=== PATIENT | male | born 1970 | race Native Hawaiian/Other Pacific Islander ===

== ENCOUNTER 2018-06-22 23:05 | Emergency (ER) | payer OTHER ==
[2018-06-22 23:36] VITALS: BMI 27.3
[2018-06-22] MEDS ORDERED: Lidocaine 2% MPF (5 ml) Inj ONE (23:43)
[2018-06-22] MEDS ORDERED: Hydrocodone/Acetaminophen 5 mg /300 mg Tab PO ONE (23:43)
--- NOTE | 2018-06-22 23:54 | C.PDOC ---
History Of Present Illness 48 year old male states 4 days ago he stubbed his right great toe and lifted the nail. He notes he already had fungus on that toe, now he complains of pain and some bleeding to the toe. Denies fever or change in sensation. Time Seen by Provider: 06/22/18 23:51 Chief Complaint (Nursing): Lower Extremity Problem/Injury History Per: Patient History/Exam Limitations: no limitations Onset/Duration Of Symptoms: Days (4) Current Symptoms Are (Timing): Still Present Recent travel outside of the [place]: No - Ankle/Foot Description Of Injury: Other (Stubbed toe) Past Medical History Reviewed: Historical Data, Nursing Documentation, Vital Signs Vital Signs: Last Vital Signs Temp 97.9 F 06/22/18 23:42 Pulse 68 06/22/18 23:42 Resp 18 06/22/18 23:42 BP 166/110 H 06/22/18 23:42 Pulse Ox 97 06/22/18 23:42 - Medical History PMH: HTN Denies: Chronic Kidney Disease Surgical History: Denies: Appendectomy, CABG, Carotid Endarterectomy, Cholecystectomy, Coronary Stent, Endoscopy, Pacemaker, Tonsillectomy Family History: States: No Known Family Hx - Social History Hx Alcohol Use: No Hx Substance Use: No - Immunization History Hx Tetanus Toxoid Vaccination: No Hx Influenza Vaccination: Yes Hx Pneumococcal Vaccination: No Review Of Systems Constitutional: Negative for: Fever, Chills Musculoskeletal: Positive for: Other (Right great toe pain) Skin: Negative for: Lesions Neurological: Negative for: Weakness, Numbness Physical Exam - Physical Exam Appears: Non-toxic, No Acute Distress Skin: Normal Color, Warm, No Rash Head: Atraumatic, Normacephalic Eye(s): bilateral: Normal Inspection Extremity: Capillary Refill (<2 seconds), Other (Right great toe nail lifted and hanging onto medial aspect of cuticle, fungus to nail bed, tenderness to right great toe, no active bleeding or pus discharge, macerated skin between webbed space of right 1st and 2nd toes, no erythema.) Pulses: Left Dorsalis Pedis: Normal, Right Dorsalis Pedis: Normal Neurological/Psych: Oriented x3, Normal Speech, Normal Cranial Nerves (Grossly intact) Gait: Steady ED Course And Treatment O2 Sat by Pulse Oximetry: 97 (Room air) Pulse Ox Interpretation: Normal Medical Decision Making Medical Decision Making: Hanging nail was removed, toe was cleansed and bandaged, patient started on keflex, and discharged with podiatry follow up. Disposition Counseled Patient/Family Regarding: Diagnosis, Need For Followup, Rx Given - Disposition Referrals: Podiatry Clinic [Outside] Disposition: HOME/ ROUTINE Disposition Time: 00:33 Condition: STABLE Prescriptions: Cephalexin [cephalexin] 500 mg PO TID 7 Days cap Instructions: Fungal Nail Infections, Toe Injury (DC) Forms: [employer] (Macedonian), General Discharge Instructions - Clinical Impression Clinical Impression: Toenail avulsion, Onychomycosis of great toe - PA / SUPERVISOR PH[employer] / Resident Statement MD/DO has reviewed & agrees with the documentation as recorded. - Scribe Statement The provider has reviewed the documentation as recorded by the Scribyuko Irizarry All medical record entries made by the Tinyibyuko were at my direction and personally dictated by me. I have reviewed the chart and agree that the record accurately reflects my personal performance of the history, physical exam, medical decision making, and the department course for this patient. I have also personally directed, reviewed, and agree with the discharge instructions and disposition.
[2018-06-23] VITALS: TEMP 97.9
[2018-06-23] MEDS ORDERED: Lidocaine 2% Inj (20ml) INFIL ONE (00:19)
[2018-06-23] MEDS ORDERED: Hydrocodone/Acetaminophen 5 mg /300 mg Tab PO STA (00:19)
[2018-06-23 00:29] VITALS: BP 151/94; PULSE 61; RESP 19
[2018-06-23 00:33] VITALS: O2SAT 97
== END 2018-06-23 01:05 | disposition home or self-care (01) ==
LOC: C.ER 23:05
DX: S91.201A Unspecified open wound of right great toe with damage to nail, initial encounter (principal); X58.XXXA Exposure to other specified factors, initial encounter; B35.1 Tinea unguium

== ENCOUNTER 2018-06-26 13:39 | Inpatient (IN) | payer OTHER ==
[2018-06-26 13:40] VITALS: BMI 27.3
[2018-06-26 14:39] LABS: BASO # 0.1 K/uL (0.0-0.2); EOS # 0.1 K/uL (0.0-0.7); EOS % 2.1 % (0.0-4.0); HEMOGLOBIN 15.4 g/dL (12.0-18.0); LYMPH % 44.3 % (20.0-40.0); MEAN CELL VOLUME 89.3 fL (80.0-94.0); MEAN CORPUSCULAR HEMOGLOBIN 30.3 pg (27.0-31.0); MEAN CORPUSCULAR HGB CONC 33.9 g/dL (33.0-37.0); MEAN PLATELET VOLUME 7.1 fL (7.2-11.7); MONO # 0.7 K/uL (0.0-0.8); MONO % 9.9 % (0.0-10.0); NEUT # 2.9 K/uL (1.8-7.0); NEUT % 42.7 % (50.0-75.0); NRBC % 0.2 % (0.0-2.0); RBC 5.09 Mil/uL (4.40-5.90); RED CELL DISTRIBUTION WIDTH 13.4 % (11.5-14.5); WHITE BLOOD COUNT 6.8 K/uL (4.8-10.8)
--- NOTE | 2018-06-26 14:43 | C.PDOC ---
History Of Present Illness 48 years old male presents to ED for complaints of headache and acute loss of vision of the right lower eye field approximately 3 hours ago. Patient reports similar episode 3 years ago. Patient's vision currently spontaneously returned to baseline with normal vision of right eye. Patient has PMHx of poorly controlled HTN and diabetes. Patient states he does not follow up with an electronic security technician. Patient speaks Mohawk. A translating device was used and maori physiotherapist stated patient is "difficult to understand." Denies retinal issues or any other complaints. Time Seen by Provider: 06/26/18 14:05 Chief Complaint (Nursing): Eye Problem History Per: Patient, Miner Helper History/Exam Limitations: language barrier Onset/Duration Of Symptoms: Hrs Current Symptoms Are (Timing): Still Present Injury To Eye?: No Wears Contact Lens?: No Recent travel outside of the [place]: No Past Medical History Reviewed: Historical Data, Nursing Documentation, Vital Signs Vital Signs: Last Vital Signs Temp 97.9 F 06/26/18 13:51 Pulse 79 06/26/18 14:25 Resp 17 06/26/18 14:25 BP 141/89 06/26/18 14:25 Pulse Ox 95 06/26/18 14:25 - Medical History PMH: Diabetes, HTN Denies: Chronic Kidney Disease Surgical History: Denies: Appendectomy, CABG, Carotid Endarterectomy, Cholecystectomy, Coronary Stent, Endoscopy, Pacemaker, Tonsillectomy Family History: States: No Known Family Hx - Social History Hx Alcohol Use: No Hx Substance Use: No - Immunization History Hx Tetanus Toxoid Vaccination: No Hx Influenza Vaccination: Yes Hx Pneumococcal Vaccination: No Review Of Systems Except As Marked, All Systems Reviewed And Found Negative. Constitutional: Negative for: Fever, Chills Eyes: Positive for: Vision Change (Acute loss of vision of the lower right eye) Gastrointestinal: Negative for: Nausea, Vomiting, Abdominal Pain, Diarrhea Skin: Negative for: Rash Neurological: Positive for: Headache. Negative for: Weakness, Numbness Physical Exam - Physical Exam Eye(s): right: Other (Symmetrical. Darkened in bilateral lower areas. Vision Symmetrical. ), left: Normal Inspection, PERRL, EOMI Oral Mucosa: Moist Neck: Normal ROM, Supple Chest: Symmetrical, No Tenderness Cardiovascular: Rhythm Regular Respiratory: Normal Breath Sounds, No Rales, No Rhonchi, No Wheezing Gastrointestinal/Abdominal: Soft, No Tenderness, Other (Obese ) Extremity: Normal ROM Extremity: Bilateral: Atraumatic, Normal Color And Temperature, Normal ROM Pulses: Left Radial: Normal, Right Radial: Normal Neurological/Psych: Oriented x3, Normal Speech Gait: Steady ED Course And Treatment - Laboratory Results Result Diagrams: 06/26/18 14:36 03 14:36 Lab Interpretation: Abnormal (+ elevated glu) ECG: Interpreted By Me ECG Rhythm: Sinus Rhythm ECG Interpretation: Normal Rate From EC O2 Sat by Pulse Oximetry: 95 (RA) Pulse Ox Interpretation: Normal - Radiology CXR: Interpreted by Me CXR Interpretation: Yes: No Acute Disease - Other Rad CXR X-Ray: Viewed By Me, Read By Radiologist Interpretation: IMPRESSION: No active disease. - CT Scan/US Head CT Other Rad Studies (CT/US): Read By Radiologist, Radiology Report Reviewed CT/US Interpretation: IMPRESSION: No evidence of acute intracranial hemorrhage mass effect or midline shift. Possible encephalomalacia or dilated perivascular space at the left basal ganglia anterior to the left thalamus. Partially imaged high attenuation lesion at or adjacent to the left the TMJ. Reevaluation Time: 16:07 Reassessment Condition: Unchanged (remains baseline) - Physician Consult Information Outcome Of Conversation: 1600: d/w Dr. Belem Almonte, medicine Physician'S Aide, ok to admit. Asks for Optho Consult. 1615: d/w Dr. Agarwal- Fabiola, Workup and opt f/u recommended. Medical Decision Making Medical Decision Making: Plan: * IV Fluids * Toradol * Tylenol * Blood work * CXR * EKG * CT Head ? retinal changes high risk in HTN/DM and abn b/l retinal exams d/w Dr. Dr Agarwal- Optho Physician'S Aide- recommends neuro/CV w/u and opt f/u for complete optho exam in office after d/c. suspect Amaurosis Fugax Start ASA multiple non-specific head CT changes Slurred speech is baseline (per Mohawk maori physiotherapist) ? related to prior CVA? ASA MRI in AM Disposition Doctor Will See Patient In The: Hospital Counseled Patient/Family Regarding: Studies Performed, Diagnosis - Disposition Disposition: HOSPITALIZED Disposition Time: 16:17 Condition: GOOD Forms: [employer] [facility] (Hungarian) - Clinical Impression Clinical Impression: Transient visual loss of right eye, Abnormal brain CT
[2018-06-26 14:47] LABS: PROTHROMBIN TIME 11.1 SECONDS (9.7-12.2)
--- NOTE | 2018-06-26 14:48 | RAD ---
Date of service: 06/26/2018 HISTORY: Code Stroke COMPARISON: No prior. FINDINGS: LUNGS: No active pulmonary disease. PLEURA: No significant pleural effusion identified, no pneumothorax apparent. CARDIOVASCULAR: No aortic atherosclerotic calcification present. Normal cardiac size. No pulmonary vascular congestion. OSSEOUS STRUCTURES: No significant abnormalities. VISUALIZED UPPER ABDOMEN: Normal. OTHER FINDINGS: None. IMPRESSION: No active disease.
[2018-06-26] MEDS: Sodium Chloride 0.9% 1,000 ML IV SCH (15:02)
[2018-06-26] MEDS ORDERED: Sodium Chloride 0.9% 1,000 ML ONE (15:02)
[2018-06-26 15:04] LABS: ALB/GLOB RATIO 1.3 (1.0-2.1); ALBUMIN 4.4 g/dL (3.5-5.0); ALT/SGPT 43 U/L (21-72); AST/SGOT 45 U/L (17-59); BLOOD UREA NITROGEN 14 mg/dL (9-20); CALCIUM 9.2 mg/dl (8.6-10.4); GFR NON-AFRICAN AMERICAN > 60; HDL CHOLESTEROL 31 mg/dL (30-70)
[2018-06-26 15:16] LABS: LDL CHOLESTEROL 152 mg/dL (0-129)
--- NOTE | 2018-06-26 15:18 | CT ---
Date of service: 06/26/2018 PROCEDURE: CT HEAD WITHOUT CONTRAST. HISTORY: acute R vision changes, HTN/DM COMPARISON: None available. TECHNIQUE: Axial computed tomography images were obtained through the head/brain without intravenous contrast. Radiation dose: Total exam DLP = 1068.97 mGy-cm. This CT exam was performed using one or more of the following dose reduction techniques: Automated exposure control, adjustment of the mA and/or kV according to patient size, and/or use of iterative reconstruction technique. FINDINGS: HEMORRHAGE: No intracranial hemorrhage. BRAIN: Focal low-attenuation noted at the left basal ganglia anterior to the left thalamus of uncertain etiology and may represent encephalomalacia or less likely dilated perivascular space. No atrophy or chronic microvascular ischemic changes. VENTRICLES: Unremarkable. No hydrocephalus. CALVARIUM: Unremarkable. PARANASAL SINUSES: Unremarkable as visualized. No significant inflammatory changes. MASTOID AIR CELLS: Unremarkable as visualized. No inflammatory changes. OTHER FINDINGS: Partially imaged possible lesion at or adjacent to the left TMJ measures 1.9 centimeter in the transverse diameter best seen on image 1 series 3 IMPRESSION: No evidence of acute intracranial hemorrhage mass effect or midline shift. Possible encephalomalacia or dilated perivascular space at the left basal ganglia anterior to the left thalamus. Partially imaged high attenuation lesion at or adjacent to the left the TMJ.
[2018-06-26] MEDS ORDERED: Aspirin 325 mg EC Tablets PO STA (16:11)
--- NOTE | 2018-06-26 19:02 | CP.PCM.HP ---
Past Patient History - Past Medical History & Family History Past Medical History?: Yes - Past Social History Smoking Status: Never Smoked - CARDIAC Hx Hypertension: Yes Hx Pacemaker: No - PULMONARY Hx Respiratory Disorders: No - NEUROLOGICAL Hx Neurological Disorder: No - HEENT Hx HEENT Problems: No - RENAL Hx Chronic Kidney Disease: No - ENDOCRINE/METABOLIC Hx Diabetes Mellitus Type 2: Yes - HEMATOLOGICAL/ONCOLOGICAL Hx Blood Disorders: No - INTEGUMENTARY Hx Dermatological Problems: No - MUSCULOSKELETAL/RHEUMATOLOGICAL Hx Musculoskeletal Disorders: No - GASTROINTESTINAL Hx Gastrointestinal Disorders: Yes Hx Bowel Surgery: No Hx Colostomy: No Hx Fatty Liver Disease: Yes Hx Ileostomy: No Other/Comment: SCREENING COLONOSOPY FATHER WITH HISTORY OF BOWEL SURGERY. HYPERLIPIDEMIA - GENITOURINARY/GYNECOLOGICAL Hx Genitourinary Disorders: No - PSYCHIATRIC Hx Substance Use: No - SURGICAL HISTORY Hx Appendectomy: No Hx Carotid Endarterectomy: No Hx Cholecystectomy: No Hx Coronary Artery Bypass Graft: No Hx Coronary Stent: No Hx Tonsillectomy: No - ANESTHESIA Hx Anesthesia: Yes Hx Malignant Hyperthermia: No Meds Allergies/Adverse Reactions: Allergies Allergy/AdvReac Type Severity Reaction Status Date / Time No Known Allergies Allergy Verified 06/22/18 23:35 Physical Exam - Constitutional Appears: Well - Head Exam Head Exam: ATRAUMATIC, NORMAL INSPECTION, NORMOCEPHALIC - Eye Exam Eye Exam: EOMI, Normal appearance, PERRL Pupil Exam: NORMAL ACCOMODATION, PERRL - ENT Exam ENT Exam: Mucous Membranes Moist, Normal Exam - Neck Exam Neck exam: Positive for: Normal Inspection - Respiratory Exam Respiratory Exam: Decreased Breath Sounds - Cardiovascular Exam Cardiovascular Exam: REGULAR RHYTHM, +S1, +S2 - GI/Abdominal Exam GI & Abdominal Exam: Diminished Bowel Sounds, Soft - Rectal Exam Rectal Exam: Deferred Results - Vital Signs Recent Vital Signs: Last Vital Signs Temp 98 F 06/26/18 16:35 Pulse 76 06/26/18 16:29 Resp 13 06/26/18 16:29 BP 132/72 06/26/18 16:29 Pulse Ox 97 06/26/18 16:29 - Labs Result Diagrams: 06/26/18 14:36 06/26/18 14:36 Labs: Laboratory Results - last 24 hr 06/26/18 06/26/18 06/26/18 14:35 14:36 14:36 WBC 6.8 RBC 5.09 Hgb 15.4 Hct 45.5 MCV 89.3 MCH 30.3 MCHC 33.9 RDW 13.4 Plt Count 211 MPV 7.1 L Neut % (Auto) 42.7 L Lymph % (Auto) 44.3 H [place] % (Auto) 9.9 Eos % (Auto) 2.1 Baso % (Auto) 1.0 Neut # (Auto) 2.9 Lymph # (Auto) 3.0 [place] # (Auto) 0.7 Eos # (Auto) 0.1 Baso # (Auto) 0.1 PT 11.1 INR 1.0 APTT 37 H Sodium Potassium Chloride Carbon Dioxide Anion Gap BUN Creatinine Est GFR ( Amer) Est GFR (Non-Af Amer) POC Glucose (mg/dL) 185 H Random Glucose Hemoglobin A1c Calcium Total Bilirubin AST ALT Alkaline Phosphatase Troponin I Total Protein Albumin Globulin Albumin/Globulin Ratio Triglycerides Cholesterol LDL Cholesterol Direct HDL Cholesterol 06/26/18 06/26/18 06/26/18 14:36 14:36 17:35 WBC RBC Hgb Hct MCV MCH MCHC RDW Plt Count MPV Neut % (Auto) Lymph % (Auto) [place] % (Auto) Eos % (Auto) Baso % (Auto) Neut # (Auto) Lymph # (Auto) [place] # (Auto) Eos # (Auto) Baso # (Auto) PT INR APTT Sodium 136 Potassium 3.6 Chloride 97 L Carbon Dioxide 33 H Anion Gap 10 BUN 14 Creatinine 0.7 L Est GFR ( Amer) > 60 Est GFR (Non-Af Amer) > 60 POC Glucose (mg/dL) 160 H Random Glucose 165 H Hemoglobin A1c 7.5 H Calcium 9.2 Total Bilirubin 0.7 AST 45 ALT 43 Alkaline Phosphatase 76 Troponin I < 0.0120 Total Protein 7.6 Albumin 4.4 Globulin 3.3 Albumin/Globulin Ratio 1.3 Triglycerides 299 H Cholesterol 203 H LDL Cholesterol Direct 152 H HDL Cholesterol 31
[2018-06-26] MEDS: (Novolog) Insulin Aspart, Recombinant 100 u/ml 10 ml vial SC SCH (21:26)
[2018-06-27 00:20] VITALS: RESP 20
[2018-06-27] MEDS: Sodium Chloride 0.9% 1,000 ML IV SCH ×4 (00:35→21:17)
[2018-06-27] MEDS: (Novolog) Insulin Aspart, Recombinant 100 u/ml 10 ml vial SC SCH ×4 (08:21→21:38)
--- NOTE | 2018-06-27 09:51 | CP.PCM.CON ---
History of Present Illness - History of Present Illness History of Present Illness: Kahlil Higuera, PGY-1, Cardiology Consult Note for Dr. Oscar 48 year old male with past medical history of hypertension, hyperlipidemia, diabetes mellitus, and obstructive sleep apnea presents with headache and acute loss of vision of the right lower eye field which started yesterday morning around 10:30 AM. Patient reports having a similar episode 3 years ago, however, it lasted for 3 days so he did not seek any medical attention at the time. He said it differed from this episode in that he saw an "electrical wire" on the last episode. Patient reports that his loss of vision is intermittent with no exacerbating or remitting factors. He reports occasional dizziness with the loss of vision. Patient denies any current chest pain, shortness of breath, left arm pain, jaw pain, or nausea. History was obtained with yoruba military technology specialist, however, military technology specialist had some trouble understanding patient. As a result, history is limited. 12-point ROS was unremarkable except for what was mentioned above. Patient had a stress test last fall with unremarkable results as reported by him Patient has never had a cardiac catheterization as reported by him. Patient denies history of cigarettes, alcohol, or recreational drug use. Patient has no family history of any cardiac conditions or stroke. Review of Systems - Review of Systems Review of Systems: except as mentioned in HPI Past Patient History - Past Medical History & Family History Past Medical History?: Yes - Past Social History Smoking Status: Never Smoked - CARDIAC Hx Hypertension: Yes Hx Pacemaker: No - PULMONARY Hx Respiratory Disorders: No - NEUROLOGICAL Hx Neurological Disorder: No - HEENT Hx HEENT Problems: No - RENAL Hx Chronic Kidney Disease: No - ENDOCRINE/METABOLIC Hx Diabetes Mellitus Type 2: Yes - HEMATOLOGICAL/ONCOLOGICAL Hx Blood Disorders: No - INTEGUMENTARY Hx Dermatological Problems: No - MUSCULOSKELETAL/RHEUMATOLOGICAL Hx Falls: No - GASTROINTESTINAL Hx Gastrointestinal Disorders: Yes Hx Bowel Surgery: No Hx Colostomy: No Hx Fatty Liver Disease: Yes Hx Ileostomy: No Other/Comment: SCREENING COLONOSOPY FATHER WITH HISTORY OF BOWEL SURGERY. HYPERLIPIDEMIA - GENITOURINARY/GYNECOLOGICAL Hx Genitourinary Disorders: No - PSYCHIATRIC Hx Substance Use: No - SURGICAL HISTORY Hx Appendectomy: No Hx Carotid Endarterectomy: No Hx Cholecystectomy: No Hx Coronary Artery Bypass Graft: No Hx Coronary Stent: No Hx Tonsillectomy: No - ANESTHESIA Hx Anesthesia: Yes Hx Malignant Hyperthermia: No Meds Allergies/Adverse Reactions: Allergies Allergy/AdvReac Type Severity Reaction Status Date / Time No Known Allergies Allergy Verified 06/22/18 23:35 - Medications Medications: Current Medications Amlodipine Besylate (Norvasc) 2.5 mg PO DAILY [facility] Aspirin (Aspirin) 325 mg PO DAILY [facility] Heparin Sodium (Porcine) (Heparin) 5,000 units SC Q12 [facility] Sodium Chloride (Sodium Chloride 0.9%) 1,000 mls @ 100 mls/hr IV .Q10H [facility] Last Admin: 06/27/18 00:35 Dose: 100 mls/hr Insulin Aspart (Novolog) 0 unit SC ACHS [facility]; Protocol Last Admin: 06/27/18 08:21 Dose: 1 units Pneumococcal Polyvalent Vaccine (Pneumovax 23 Vaccine) 0.5 ml IM .ONCE ONE Stop: 06/27/18 10:01 Rosuvastatin Calcium (Crestor) 5 mg PO HS [facility] Last Admin: 06/26/18 21:51 Dose: 5 mg Physical Exam - Constitutional Appears: Well, Non-toxic, No Acute Distress - Head Exam Head Exam: ATRAUMATIC, NORMAL INSPECTION, NORMOCEPHALIC - Eye Exam Eye Exam: EOMI, PERRL - ENT Exam ENT Exam: Mucous Membranes Moist - Respiratory Exam Respiratory Exam: Clear to Auscultation Bilateral, NORMAL BREATHING PATTERN - Cardiovascular Exam Cardiovascular Exam: REGULAR RHYTHM, RRR - GI/Abdominal Exam GI & Abdominal Exam: Normal Bowel Sounds, Soft. absent: Tenderness - Extremities Exam Extremities exam: Positive for: full ROM - Neurological Exam Neurological exam: Alert, CN II-XII Intact, Oriented x3 - Psychiatric Exam Psychiatric exam: Normal Affect, Normal Mood - Skin Skin Exam: Dry, Intact, Normal Color Results - Vital Signs Recent Vital Signs: Last Vital Signs Temp 97.4 F L 06/27/18 00:19 Pulse 72 06/27/18 00:19 Resp 20 06/27/18 00:19 BP 138/87 06/27/18 00:19 Pulse Ox 96 06/27/18 00:19 - Labs Result Diagrams: 06/26/18 14:36 06/26/18 14:36 Labs: Laboratory Results - last 24 hr 06/26/18 06/26/18 06/26/18 14:35 14:36 14:36 WBC 6.8 RBC 5.09 Hgb 15.4 Hct 45.5 MCV 89.3 MCH 30.3 MCHC 33.9 RDW 13.4 Plt Count 211 MPV 7.1 L Neut % (Auto) 42.7 L Lymph % (Auto) 44.3 H [place] % (Auto) 9.9 Eos % (Auto) 2.1 Baso % (Auto) 1.0 Neut # (Auto) 2.9 Lymph # (Auto) 3.0 [place] # (Auto) 0.7 Eos # (Auto) 0.1 Baso # (Auto) 0.1 PT 11.1 INR 1.0 APTT 37 H Sodium Potassium Chloride Carbon Dioxide Anion Gap BUN Creatinine Est GFR ( Amer) Est GFR (Non-Af Amer) POC Glucose (mg/dL) 185 H Random Glucose Hemoglobin A1c Calcium Total Bilirubin AST ALT Alkaline Phosphatase Troponin I Total Protein Albumin Globulin Albumin/Globulin Ratio Triglycerides Cholesterol LDL Cholesterol Direct HDL Cholesterol 06/26/18 06/26/18 06/26/18 14:36 14:36 17:35 WBC RBC Hgb Hct MCV MCH MCHC RDW Plt Count MPV Neut % (Auto) Lymph % (Auto) [place] % (Auto) Eos % (Auto) Baso % (Auto) Neut # (Auto) Lymph # (Auto) [place] # (Auto) Eos # (Auto) Baso # (Auto) PT INR APTT Sodium 136 Potassium 3.6 Chloride 97 L Carbon Dioxide 33 H Anion Gap 10 BUN 14 Creatinine 0.7 L Est GFR ( Amer) > 60 Est GFR (Non-Af Amer) > 60 POC Glucose (mg/dL) 160 H Random Glucose 165 H Hemoglobin A1c 7.5 H Calcium 9.2 Total Bilirubin 0.7 AST 45 ALT 43 Alkaline Phosphatase 76 Troponin I < 0.0120 Total Protein 7.6 Albumin 4.4 Globulin 3.3 Albumin/Globulin Ratio 1.3 Triglycerides 299 H Cholesterol 203 H LDL Cholesterol Direct 152 H HDL Cholesterol 31 06/26/18 06/26/18 06/27/18 21:17 22:03 06:29 WBC RBC Hgb Hct MCV MCH MCHC RDW Plt Count MPV Neut % (Auto) Lymph % (Auto) [place] % (Auto) Eos % (Auto) Baso % (Auto) Neut # (Auto) Lymph # (Auto) [place] # (Auto) Eos # (Auto) Baso # (Auto) PT INR APTT Sodium Potassium Chloride Carbon Dioxide Anion Gap BUN Creatinine Est GFR ( Amer) Est GFR (Non-Af Amer) POC Glucose (mg/dL) 164 H Random Glucose Hemoglobin A1c Calcium Total Bilirubin AST ALT Alkaline Phosphatase Troponin I < 0.0120 < 0.0120 Total Protein Albumin Globulin Albumin/Globulin Ratio Triglycerides Cholesterol LDL Cholesterol Direct HDL Cholesterol 06/27/18 07:24 WBC RBC Hgb Hct MCV MCH MCHC RDW Plt Count MPV Neut % (Auto) Lymph % (Auto) [place] % (Auto) Eos % (Auto) Baso % (Auto) Neut # (Auto) Lymph # (Auto) [place] # (Auto) Eos # (Auto) Baso # (Auto) PT INR APTT Sodium Potassium Chloride Carbon Dioxide Anion Gap BUN Creatinine Est GFR ( Amer) Est GFR (Non-Af Amer) POC Glucose (mg/dL) 160 H Random Glucose Hemoglobin A1c Calcium Total Bilirubin AST ALT Alkaline Phosphatase Troponin I Total Protein Albumin Globulin Albumin/Globulin Ratio Triglycerides Cholesterol LDL Cholesterol Direct HDL Cholesterol Assessment & Plan - Assessment and Plan (Free Text) Assessment: Hypertension Diabetes Mellitus Type II Obstructive Sleep Apnea Hyperlipidemia Transient loss of vision with rule out of embolic stroke vs. amaurosis fugax Plan: Hypertension Diabetes Mellitus Type II Obstructive Sleep Apnea Hyperlipidemia Transient loss of vision with rule out of embolic stroke vs. amaurosis fugax Head CT: possible encephalomalacia of left basal ganglia Chest X ray: unremarkable EKG: Normal Sinus Rhythm Hemoglobin A1c: 7.5 Lipid panel: elevated triglycerides, cholesterol, and LDL Troponinx3 is <0.012 Will order echocardiogram with bubble study to evaluate for PFO or ASD as etiology for possible embolic stroke. Medications: Amlodipine 2.5 mg PO daily Rosuvastatin 5 mg PO daily - Date & Time Date: 06/27/18 Time: 09:53
[2018-06-27] MEDS ORDERED: Pneumococcal 23-Valent Vaccine IM ONE (10:00)
--- NOTE | 2018-06-27 12:46 | CARD ---
APPROVED REPORT Date of service: 06/26/2018 EKG Measurement Heart [id number] <Conclusion> Normal sinus rhythm Possible Inferior infarct, age undetermined Abnormal ECG
--- NOTE | 2018-06-27 14:04 | MRI ---
Date of service: 06/27/2018 PROCEDURE: MRI BRAIN WITHOUT CONTRAST HISTORY: acute transient right eye loss of vision. COMPARISON: CT head without contrast from 06/26/2018. TECHNIQUE: Multiplanar, multisequence MR images of the brain were obtained without intravenous contrast enhancement. FINDINGS: HEMORRHAGE: None DWI: No evidence of an acute or early subacute infarction. BRAIN PARENCHYMA: There are prominent perivascular spaces in the right medial thalamus and left anterior paramedian thalamus.. There is no mass, mass effect or abnormal extra-axial fluid collection. There is no territorial infarction. The midline sagittal structures are normal. VENTRICLES: The ventricles are normal in size, shape and configuration. CRANIUM: There is normal bone marrow signal pattern. ORBITS: Grossly unremarkable. PARANASAL SINUSES/MASTOIDS: Predominantly clear. VASCULAR SYSTEM: There are normal signal voids in the larger intracranial arteries. There is a linear high attenuation signal in the left cerebellar hemisphere on T1 and T2 weighted images with corresponding increased magnetic susceptibility on gradient images OTHER FINDINGS: None. IMPRESSION: No acute intracranial abnormality. Prominent perivascular spaces in the right medial thalamus and left paramedian anterior thalamus. Linear signal abnormality in the left cerebellar hemisphere could represent petechial hemorrhage or developmental venous anomaly. Correlation with MRI of the brain with intravenous contrast is recommended. Incompletely imaged lesion posterior to the left temporomandibular joint and CT scan is not imaged on the MRI examination. CT scan of the neck with intravenous contrast is recommended for further evaluation.
--- NOTE | 2018-06-27 16:01 | CON ---
DATE: 06/27/2018 CHIEF COMPLAINT: Transient acute vision loss of right lower eye field. HISTORY OF PRESENT ILLNESS: This is a 48-year-old man with past medical history of hypertension, hyperlipidemia, type 2 diabetes, , sleep apnea, came with a headache with acute visual loss of the right lower field. Headache was diffuse pressure type. His MRI of the brain showed no acute intracranial abnormalities, just chronic microvascular ischemic changes, but no evidence of any infarct. His blood pressure was systolically high as well as diastolic. Currently it is controlled. He is on aspirin 325 p.o. daily and Crestor 5 mg for stroke prevention. Carotid Doppler is currently pending. REVIEW OF SYSTEMS: A 14-point review of system is negative except for the HPI. MEDICATION: Reviewed by nurse, per reconciliation sheet. ALLERGIES: NO KNOWN DRUG ALLERGIES. PHYSICAL EXAMINATION: VITAL SIGNS: Temperature 98, pulse rate of 74, blood pressure 130/80, respiratory rate 20, oxygen saturation 97% on room air. GENERAL: The patient is seen up in bed, no acute distress. HEENT: Head is atraumatic, normocephalic. PERRLA. Extraocular movements intact. NECK: Supple. No JVD. No adenopathy noted. LUNGS: Clear to auscultation. No adventitious sounds. HEART: S1, S2. Normal rate and rhythm. No murmurs, rubs or gallops. ABDOMEN: Soft, nontender, nondistended. Bowel sounds are present. EXTREMITIES: No clubbing, no cyanosis. Peripheral pulses are 2+ bilaterally. NEUROLOGIC: The patient is alert, oriented to person, place, month and year. Speech is fluent without any errors. Cranial nerves II through XII intact. Motor exam: Normal tone, normal bulk of muscle. Moves all extremities equally. No pronator drift seen. Sensory exam: Light touch, pinprick, proprioception and vibration intact. DTRs are 2+ throughout. Coordination: [id number] intact. No dysmetria noted. Gait is deferred for now. LABORATORY DATA: Today's blood sugar is 144. IMPRESSION: Transient acute vision loss with headache could be secondary to migraine or versus amaurosis fugax, which is transient. MRI of the brain showed no acute intracranial abnormalities. PLAN: At this time recommend: 1. Aspirin 325 and Crestor 5 mg for stroke prevention. 2. Keep his systolic blood pressure between 120s to 130s and diastolic 70s to 80s. 3. Salt restriction diet and carotid Doppler and follow with Cardiology. Thank you for this consult. Lexa Schofield MD
--- NOTE | 2018-06-27 20:11 | CP.PCM.PN ---
Subjective - Date & Time of Evaluation Date of Evaluation: 06/27/18 Time of Evaluation: 08:15 - Subjective Subjective: clinically same Objective - Vital Signs/Intake and Output Vital Signs (last 24 hours): Temp Pulse Resp BP Pulse Ox 98 F 74 20 134/80 96 06/27/18 16:00 06/27/18 16:00 06/27/18 16:00 06/27/18 16:00 06/27/18 16:00 Intake and Output: 06/27/18 06/28/18 18:59 06:59 Intake Total 2220 Balance 2220 - Medications Medications: Current Medications Amlodipine Besylate (Norvasc) 2.5 mg PO DAILY [facility] Last Admin: 06/27/18 10:04 Dose: 2.5 mg Aspirin (Aspirin) 325 mg PO DAILY [facility] Last Admin: 06/27/18 10:03 Dose: 325 mg Heparin Sodium (Porcine) (Heparin) 5,000 units SC Q12 [facility] Last Admin: 06/27/18 10:04 Dose: 5,000 units Sodium Chloride (Sodium Chloride 0.9%) 1,000 mls @ 100 mls/hr IV .Q10H [facility] Last Admin: 06/27/18 14:04 Dose: 100 mls/hr Insulin Aspart (Novolog) 0 unit SC ACHS [facility]; Protocol Last Admin: 06/27/18 17:28 Dose: Not Given Rosuvastatin Calcium (Crestor) 5 mg PO HS [facility] Last Admin: 06/26/18 21:51 Dose: 5 mg - Labs Labs: 06/26/18 14:36 06/26/18 14:36 PT 11.1 SECONDS (9.7-12.2) 06/26/18 14:36 INR 1.0 06/26/18 14:36 APTT 37 SECONDS (21-34) H 06/26/18 14:36 - Constitutional Appears: Well - Head Exam Head Exam: ATRAUMATIC, NORMAL INSPECTION, NORMOCEPHALIC - Eye Exam Eye Exam: EOMI, Normal appearance, PERRL Pupil Exam: NORMAL ACCOMODATION, PERRL - ENT Exam ENT Exam: Mucous Membranes Moist, Normal Exam - Neck Exam Neck Exam: Full ROM, Normal Inspection. absent: Lymphadenopathy - Respiratory Exam Respiratory Exam: Decreased Breath Sounds - Cardiovascular Exam Cardiovascular Exam: REGULAR RHYTHM, +S1, +S2 - GI/Abdominal Exam GI & Abdominal Exam: Soft, Diminished Bowel Sounds - Rectal Exam Rectal Exam: Deferred
[2018-06-28] MEDS: Sodium Chloride 0.9% 1,000 ML IV SCH ×2 (05:59→16:30)
[2018-06-28] MEDS: (Novolog) Insulin Aspart, Recombinant 100 u/ml 10 ml vial SC SCH ×4 (08:38→21:55)
--- NOTE | 2018-06-28 14:56 | CP.PCM.PN ---
Subjective - Date & Time of Evaluation Date of Evaluation: 06/28/18 Time of Evaluation: 08:00 - Subjective Subjective: clinically same Objective - Vital Signs/Intake and Output Vital Signs (last 24 hours): Temp Pulse Resp BP Pulse Ox 98.7 F 96 H 20 128/85 96 06/28/18 08:35 06/28/18 08:35 06/28/18 08:35 06/28/18 08:35 06/28/18 08:35 Intake and Output: 06/28/18 06/28/18 06:59 18:59 Intake Total 1880 1100 Output Total 700 Balance 1180 1100 - Medications Medications: Current Medications Amlodipine Besylate (Norvasc) 2.5 mg PO DAILY [facility] Last Admin: 06/28/18 10:49 Dose: 2.5 mg Aspirin (Aspirin) 325 mg PO DAILY [facility] Last Admin: 06/28/18 10:49 Dose: 325 mg Heparin Sodium (Porcine) (Heparin) 5,000 units SC Q12 [facility] Last Admin: 06/28/18 10:49 Dose: 5,000 units Sodium Chloride (Sodium Chloride 0.9%) 1,000 mls @ 100 mls/hr IV .Q10H [facility] Last Admin: 06/28/18 05:59 Dose: 100 mls/hr Insulin Aspart (Novolog) 0 unit SC ACHS [facility]; Protocol Last Admin: 06/28/18 12:25 Dose: 1 units Rosuvastatin Calcium (Crestor) 5 mg PO HS [facility] Last Admin: 06/27/18 21:16 Dose: 5 mg - Labs Labs: 06/26/18 14:36 06/26/18 14:36 PT 11.1 SECONDS (9.7-12.2) 06/26/18 14:36 INR 1.0 06/26/18 14:36 APTT 37 SECONDS (21-34) H 06/26/18 14:36
--- NOTE | 2018-06-28 16:21 | CP.PCM.PN ---
Subjective - Date & Time of Evaluation Date of Evaluation: 06/28/18 Time of Evaluation: 16:18 - Subjective Subjective: Kahlil Higuera, PGY-1, Cardiology Progress Note for Dr. Oscar Patient seen and evaluated at bedside. Patient had no acute overnight events. Patient denied any symptoms today including visual loss, chest pain, heart palpitations, shortness of breath, nausea, vomiting, diaphoresis, or dizziness. Objective - Vital Signs/Intake and Output Vital Signs (last 24 hours): Temp Pulse Resp BP Pulse Ox 98.4 F 76 20 146/92 H 95 06/28/18 15:56 06/28/18 15:56 06/28/18 15:56 06/28/18 15:56 06/28/18 15:56 Intake and Output: 06/28/18 06/28/18 06:59 18:59 Intake Total 1880 1100 Output Total 700 Balance 1180 1100 - Medications Medications: Current Medications Amlodipine Besylate (Norvasc) 2.5 mg PO DAILY [facility] Last Admin: 06/28/18 10:49 Dose: 2.5 mg Aspirin (Aspirin) 325 mg PO DAILY [facility] Last Admin: 06/28/18 10:49 Dose: 325 mg Heparin Sodium (Porcine) (Heparin) 5,000 units SC Q12 [facility] Last Admin: 06/28/18 10:49 Dose: 5,000 units Sodium Chloride (Sodium Chloride 0.9%) 1,000 mls @ 100 mls/hr IV .Q10H [facility] Last Admin: 06/28/18 05:59 Dose: 100 mls/hr Insulin Aspart (Novolog) 0 unit SC ACHS [facility]; Protocol Last Admin: 06/28/18 12:25 Dose: 1 units Rosuvastatin Calcium (Crestor) 5 mg PO HS [facility] Last Admin: 06/27/18 21:16 Dose: 5 mg - Labs Labs: 06/26/18 14:36 06/26/18 14:36 PT 11.1 SECONDS (9.7-12.2) 06/26/18 14:36 INR 1.0 06/26/18 14:36 APTT 37 SECONDS (21-34) H 06/26/18 14:36 - Constitutional Appears: Well, Non-toxic, No Acute Distress - Head Exam Head Exam: ATRAUMATIC, NORMAL INSPECTION, NORMOCEPHALIC - Eye Exam Eye Exam: EOMI, PERRL - ENT Exam ENT Exam: Mucous Membranes Moist - Neck Exam Neck Exam: Full ROM - Respiratory Exam Respiratory Exam: Clear to Ausculation Bilateral, NORMAL BREATHING PATTERN - Cardiovascular Exam Cardiovascular Exam: REGULAR RHYTHM, RRR, +S1, +S2 - GI/Abdominal Exam GI & Abdominal Exam: Soft, Normal Bowel Sounds. absent: Tenderness - Extremities Exam Extremities Exam: Full ROM - Neurological Exam Neurological Exam: Alert, Awake, CN II-XII Intact, Oriented x3 - Skin Skin Exam: Dry, Intact Assessment and Plan - Assessment and Plan (Free Text) Assessment: Hypertension Diabetes Mellitus Type II Obstructive Sleep Apnea Hyperlipidemia Transient loss of vision with rule out of embolic stroke vs. amaurosis fugax Plan: Hypertension Diabetes Mellitus Type II Obstructive Sleep Apnea Hyperlipidemia Transient loss of vision with rule out of embolic stroke vs. amaurosis fugax Head CT: possible encephalomalacia of left basal ganglia Chest X ray: unremarkable EKG: Normal Sinus Rhythm MRI brain: no acute intracranial abnormalities Will follow up echocardiogram Likely LEROY scheduled for tomorrow Hemoglobin A1c: 7.5 Lipid panel: elevated triglycerides, cholesterol, and LDL Troponinx3 is <0.012 Medications: Aspirin Amlodipine Rosuvastatin
--- NOTE | 2018-06-28 20:28 | CARD ---
APPROVED REPORT Date of service: 06/28/2018 EXAM: Two-dimensional and M-mode echocardiogram with Doppler and color Doppler. Other Information Quality : GoodRhythm : Echo Enhancing Agent Indication: Rule Out Septal Defect Agent/Amount Used: Agitated Saline RISK FACTORS Hypertension Hyperlipidemia Diabetes 2D DIMENSIONS IVSd1.2 (0.7-1.1cm)LVDd4.0 (3.9-5.9cm) PWd1.3 (0.7-1.1cm)LA Xgynoa24 (18-58mL) LVDs2.9 (2.5-4.0cm)FS (%) 26.0 % LVEF (%)60.0 (>50%)LVEF (Tucker's)55 % IVC0.00 cm M-Mode DIMENSIONS RVDd1.85 (2.1-3.2cm)Left Atrium (MM)2.94 (2.5-4.0cm) IVSd1.27 (0.7-1.1cm)Aortic Root3.39 (2.2-3.7cm) LVDd4.43 (4.0-5.6cm)Aortic Cusp Exc.2.02 (1.5-2.0cm) PWd1.24 (0.7-1.1cm)FS (%) 38 % LVDs2.73 (2.0-3.8cm)LVEF (%)69 (>50%) Mitral Valve MV E Tbibuihn76.9cm/sMV A Qeutxzjo37.8cm/sE/A ratio0.9 TDI Lateral E' Peak V8.03cm/sMedial E' Peak V6.61cm/sE/Lateral E'10.2 E/Medial E'12.4 Tricuspid Valve TR Peak Nibrvirw892dq/sTR Peak Gr.[id number] LEFT VENTRICLE The left ventricle is normal size. There is mild concentric left ventricular hypertrophy. Left ventricle systolic function is normal. The Ejection Fraction is 60-65%. There is normal LV segmental wall motion. The left ventricular diastolic function is normal. There is no ventricular septal defect visualized. RIGHT VENTRICLE The right ventricle is normal size. The right ventricular systolic function is normal. ATRIA The left atrium size is normal. The right atrium size is normal. No ASD agitaed saline injection failed to demonstrate any R to L intracrdiac shunt. AORTIC VALVE The aortic valve is tri-cuspid. The aortic valve is normal in structure. No aortic regurgitation is present. There is no aortic valvular stenosis. MITRAL VALVE The mitral valve is normal in structure. There is no evidence of mitral valve prolapse. There is no mitral valve regurgitation noted. TRICUSPID VALVE The tricuspid valve is normal in structure. There is trace tricuspid regurgitation. Right ventricular systolic pressure is estimated at less than 30 mmHg. There is no pulmonary hypertension. PULMONIC VALVE The pulmonic valve is not well visualized. There is no pulmonic valvular regurgitation. GREAT VESSELS The aortic root is normal in size. The ascending aorta is normal in size. The IVC is normal in size and collapses >50% with inspiration. PERICARDIAL EFFUSION There is no pericardial effusion. <Conclusion> There is mild concentric left ventricular hypertrophy. Left ventricle systolic function is normal. The Ejection Fraction is 60-65%. The left ventricular diastolic function is normal. No ASD agitaed saline injection failed to demonstrate any R to L intracrdiac shunt.
[2018-06-29] MEDS: (Novolog) Insulin Aspart, Recombinant 100 u/ml 10 ml vial SC SCH ×4 (08:20→21:21)
--- NOTE | 2018-06-29 09:29 | CP.PCM.PN ---
Subjective - Date & Time of Evaluation Date of Evaluation: 06/29/18 Time of Evaluation: 09:26 - Subjective Subjective: Kahlil Higuera, PGY-1, Cardiology Progress Note for Dr. Oscar Patient seen and evaluated at bedside. Patient had no acute overnight events. Patient denies any current symptoms including loss of vision, headache, dizziness, chest pain, shortness of breath, nausea, diaphoresis, left arm pain, and jaw pain. Objective - Vital Signs/Intake and Output Vital Signs (last 24 hours): Temp Pulse Resp BP Pulse Ox 98.7 F 75 20 137/90 97 06/29/18 08:00 06/29/18 08:00 06/29/18 08:00 06/29/18 08:00 06/29/18 08:00 Intake and Output: 06/29/18 06/29/18 06:59 18:59 Intake Total 800 Balance 800 - Medications Medications: Current Medications Amlodipine Besylate (Norvasc) 2.5 mg PO DAILY [facility] Last Admin: 06/28/18 10:49 Dose: 2.5 mg Aspirin (Aspirin) 325 mg PO DAILY [facility] Last Admin: 06/28/18 10:49 Dose: 325 mg Heparin Sodium (Porcine) (Heparin) 5,000 units SC Q12 [facility] Last Admin: 06/28/18 21:58 Dose: Not Given Insulin Aspart (Novolog) 0 unit SC ACHS [facility]; Protocol Last Admin: 06/29/18 08:20 Dose: Not Given Rosuvastatin Calcium (Crestor) 5 mg PO HS [facility] Last Admin: 06/28/18 21:53 Dose: 5 mg - Labs Labs: 06/26/18 14:36 06/26/18 14:36 PT 11.1 SECONDS (9.7-12.2) 06/26/18 14:36 INR 1.0 06/26/18 14:36 APTT 37 SECONDS (21-34) H 06/26/18 14:36 - Constitutional Appears: Well, Non-toxic, No Acute Distress - Head Exam Head Exam: ATRAUMATIC, NORMAL INSPECTION, NORMOCEPHALIC - Eye Exam Eye Exam: EOMI, PERRL - ENT Exam ENT Exam: Mucous Membranes Moist - Neck Exam Neck Exam: Full ROM - Respiratory Exam Respiratory Exam: Clear to Ausculation Bilateral, NORMAL BREATHING PATTERN - Cardiovascular Exam Cardiovascular Exam: REGULAR RHYTHM, RRR, +S1, +S2 - GI/Abdominal Exam GI & Abdominal Exam: Soft, Normal Bowel Sounds. absent: Tenderness - Extremities Exam Extremities Exam: Full ROM, Normal Capillary Refill. absent: Pedal Edema - Neurological Exam Neurological Exam: Alert, Awake, CN II-XII Intact, Oriented x3 - Skin Skin Exam: Dry, Intact, Normal Color Assessment and Plan - Assessment and Plan (Free Text) Assessment: Hypertension Diabetes Mellitus Type II Obstructive Sleep Apnea Hyperlipidemia Transient loss of vision with rule out of embolic stroke vs. amaurosis fugax Plan: Hypertension Diabetes Mellitus Type II Obstructive Sleep Apnea Hyperlipidemia Transient loss of vision with rule out of embolic stroke vs. amaurosis fugax Head CT: possible encephalomalacia of left basal ganglia Chest X ray: unremarkable EKG: Normal Sinus Rhythm MRI brain: no acute intracranial abnormalities Echocardiogram with bubble study: LVEF 55-60%, no ASD or PFO LEROY showed type II aortic atheroma. As a result, will start patient on eliquis which should be continued outpatient. Patient will need eliquis 10 mg BID for 7 days followed by eliquis 5 mg BID Hemoglobin A1c: 7.5 Lipid panel: elevated triglycerides, cholesterol, and LDL Troponinx3 is <0.012 Medications: Aspirin Amlodipine Rosuvastatin Eliquis
[2018-06-29] MEDS ORDERED: Lidocaine 4% (Laryng-O-Jet) Kit MM ONE (09:34)
--- NOTE | 2018-06-29 13:29 | VASCLAB ---
Date of service: 06/28/2018 PROCEDURE: Carotid Duplex Exam. HISTORY: transient loss of vision of right eye. COMPARISON: None available. TECHNIQUE: Grayscale and duplex Doppler evaluation of the cervical carotid and vertebral arteries were performed. The common carotid, carotid bifurcations and cervical Internal Carotid Artery (ICA) and proximal External Carotid Artery (ECA) were evaluated. The vertebral arteries were evaluated for gross patency and flow direction. Report prepared by Rubens Garcia, BS, RVT FINDINGS: RIGHT CAROTID ARTERIES: 1. Common Carotid Artery: No significant focal plaque formation of the right common carotid artery. Maximum Peak Systolic velocity: 70 cm/sec: End-diastolic velocity 22 cm/sec. 2. Carotid Bifurcation: plaque formation. Maximum Peak Systolic velocity: 50 cm/sec: End-diastolic velocity 16 cm/sec. 3. Internal Carotid Artery: Plaque description: 3.1. Proximal Segment: Peak systolic velocity 40 cm/sec: End-diastolic velocity 16 cm/sec - % stenosis 0-15% 3.2. Middle Segment: Peak systolic velocity 43 cm/sec: End-diastolic velocity 20 cm/sec - % stenosis 0-15% 3.3. Distal Segment: Peak systolic velocity 37 cm/sec: End-diastolic velocity 18 cm/sec - % stenosis 0-15% 4. External Carotid Artery: No significant focal plaque formation. Peak systolic velocity 88 cm/sec 5. ICA/CCA Ratio: 0.7 LEFT CAROTID ARTERIES: 1. Common Carotid Artery: No significant focal plaque formation of the left common carotid artery. Maximum Peak Systolic velocity: 61 cm/sec: End-diastolic velocity 21 cm/sec. 2. Carotid Bifurcation: plaque formation. Maximum Peak Systolic velocity: 51 cm/sec: End-diastolic velocity 19 cm/sec. 3. Internal Carotid Artery: Plaque description: 3.1. Proximal Segment: Peak systolic velocity 49 cm/sec: End-diastolic velocity 18 cm/sec - % stenosis 0-15% 3.2. Middle Segment: Peak systolic velocity 51 cm/sec: End-diastolic velocity 18 cm/sec - % stenosis 0-15% 3.3. Distal Segment: Peak systolic velocity 61 cm/sec: End-diastolic velocity 29 cm/sec - % stenosis 0-15% 4. External Carotid Artery: No significant focal plaque formation. Peak systolic velocity 85 cm/sec 5. ICA/CCA Ratio: 1.0 VERTEBRAL ARTERIES: 1. Right Vertebral Artery: The right vertebral artery flow direction is antegrade. 2. Left Vertebral Artery: The left vertebral artery flow direction is antegrade. OTHER FINDINGS: 1. Right Brachial Blood pressure: mmHg. 2. Left Brachial Blood pressure: mmHg. 3. No atherosclerotic calcification present IMPRESSION: RIGHT: Duplex scan does not suggest hemodynamically significant stenosis of the right extracranial carotid arteries. LEFT: Duplex scan does not suggest hemodynamically significant stenosis of the left extracranial carotid arteries.
[2018-06-29] MEDS ORDERED: Midazolam 2 MG/2 ML VIAL ONE ×2 (13:44)
--- NOTE | 2018-06-29 14:21 | CP.PCM.PN ---
Subjective - Date & Time of Evaluation Date of Evaluation: 06/29/18 Time of Evaluation: 07:30 - Subjective Subjective: clinically same Objective - Vital Signs/Intake and Output Vital Signs (last 24 hours): Temp Pulse Resp BP Pulse Ox 98.7 F 75 20 137/90 97 06/29/18 08:00 06/29/18 08:00 06/29/18 08:00 06/29/18 08:00 06/29/18 08:00 Intake and Output: 06/29/18 06/29/18 06:59 18:59 Intake Total 800 Balance 800 - Medications Medications: Current Medications Amlodipine Besylate (Norvasc) 2.5 mg PO DAILY [facility] Last Admin: 06/29/18 09:15 Dose: Not Given Aspirin (Aspirin) 325 mg PO DAILY [facility] Last Admin: 06/29/18 09:15 Dose: Not Given Heparin Sodium (Porcine) (Heparin) 5,000 units SC Q12 [facility] Last Admin: 06/29/18 09:15 Dose: Not Given Insulin Aspart (Novolog) 0 unit SC ACHS [facility]; Protocol Last Admin: 06/29/18 12:30 Dose: Not Given Rosuvastatin Calcium (Crestor) 5 mg PO HS [facility] Last Admin: 06/28/18 21:53 Dose: 5 mg - Labs Labs: 06/26/18 14:36 06/26/18 14:36 PT 11.1 SECONDS (9.7-12.2) 06/26/18 14:36 INR 1.0 06/26/18 14:36 APTT 37 SECONDS (21-34) H 06/26/18 14:36 - Constitutional Appears: Well - Head Exam Head Exam: ATRAUMATIC, NORMAL INSPECTION, NORMOCEPHALIC - Eye Exam Eye Exam: EOMI, Normal appearance, PERRL Pupil Exam: NORMAL ACCOMODATION, PERRL - ENT Exam ENT Exam: Mucous Membranes Moist, Normal Exam - Neck Exam Neck Exam: Full ROM, Normal Inspection. absent: Lymphadenopathy - Respiratory Exam Respiratory Exam: Decreased Breath Sounds - Cardiovascular Exam Cardiovascular Exam: REGULAR RHYTHM, +S1, +S2 - GI/Abdominal Exam GI & Abdominal Exam: Soft, Diminished Bowel Sounds - Rectal Exam Rectal Exam: Deferred
[2018-06-30] MEDS: (Novolog) Insulin Aspart, Recombinant 100 u/ml 10 ml vial SC SCH ×2 (07:56→11:33)
[2018-06-30 08:10] VITALS: BP 148/112; PULSE 90; TEMP 98.1; O2SAT 96
--- NOTE | 2018-06-30 08:46 | CP.PCM.PN ---
Subjective - Date & Time of Evaluation Date of Evaluation: 06/30/18 Time of Evaluation: 08:42 - Subjective Subjective: Kahlil Higuera, PGY-1, Cardiology Progress Note for Dr. Oscar Patient seen and evaluated at bedside. Patient had no acute overnight events. Patient denies any current symptoms including loss of vision, headache, dizziness, chest pain, shortness of breath, nausea, diaphoresis, left arm pain, and jaw pain. Objective - Vital Signs/Intake and Output Vital Signs (last 24 hours): Temp Pulse Resp BP Pulse Ox 98.1 F 90 20 148/112 H 96 06/30/18 07:00 06/30/18 07:00 06/30/18 07:00 06/30/18 07:00 06/30/18 07:00 Intake and Output: 06/30/18 06/30/18 06:59 18:59 Intake Total 1240 Balance 1240 - Medications Medications: Current Medications Amlodipine Besylate (Norvasc) 2.5 mg PO DAILY [facility] Last Admin: 06/29/18 09:15 Dose: Not Given Apixaban (Eliquis) 10 mg PO BID [facility] Last Admin: 06/29/18 19:07 Dose: 10 mg Aspirin (Aspirin) 325 mg PO DAILY [facility] Last Admin: 06/29/18 09:15 Dose: Not Given Insulin Aspart (Novolog) 0 unit SC [facility]; Protocol Last Admin: 06/30/18 07:56 Dose: 1 units Rosuvastatin Calcium (Crestor) 5 mg PO HS [facility] Last Admin: 06/29/18 21:13 Dose: 5 mg - Labs Labs: 06/26/18 14:36 06/26/18 14:36 PT 11.1 SECONDS (9.7-12.2) 06/26/18 14:36 INR 1.0 06/26/18 14:36 APTT 37 SECONDS (21-34) H 06/26/18 14:36 - Constitutional Appears: Well, Non-toxic, No Acute Distress - Head Exam Head Exam: ATRAUMATIC, NORMAL INSPECTION, NORMOCEPHALIC - Eye Exam Eye Exam: EOMI, PERRL - ENT Exam ENT Exam: Mucous Membranes Moist - Neck Exam Neck Exam: Full ROM - Respiratory Exam Respiratory Exam: Clear to Ausculation Bilateral, NORMAL BREATHING PATTERN. absent: Rales, Rhonchi, Wheezes - Cardiovascular Exam Cardiovascular Exam: REGULAR RHYTHM, RRR, +S1, +S2 - GI/Abdominal Exam GI & Abdominal Exam: Soft, Normal Bowel Sounds. absent: Tenderness - Extremities Exam Extremities Exam: Full ROM - Neurological Exam Neurological Exam: Alert, Awake, CN II-XII Intact, Oriented x3 - Skin Skin Exam: Dry, Intact, Normal Color Assessment and Plan - Assessment and Plan (Free Text) Assessment: Hypertension Diabetes Mellitus Type II Obstructive Sleep Apnea Hyperlipidemia Transient loss of vision with rule out of embolic stroke vs. amaurosis fugax Plan: Hypertension Diabetes Mellitus Type II Obstructive Sleep Apnea Hyperlipidemia Transient loss of vision with rule out of embolic stroke vs. amaurosis fugax Head CT: possible encephalomalacia of left basal ganglia Chest X ray: unremarkable EKG: Normal Sinus Rhythm MRI brain: no acute intracranial abnormalities Echocardiogram with bubble study: LVEF 55-60%, no ASD or PFO LEROY showed aortic atheroma. Continue patient on eliquis which should be continued outpatient. Patient will need eliquis 10 mg BID for 7 days followed by eliquis 5 mg BID. Patient is currently on day 2 Hemoglobin A1c: 7.5 Lipid panel: elevated triglycerides, cholesterol, and LDL Troponinx3 is <0.012 Medications: Aspirin Amlodipine Rosuvastatin Eliquis
--- NOTE | 2018-06-30 17:59 | CP.PCM.PN ---
Subjective - Date & Time of Evaluation Date of Evaluation: 06/30/18 Time of Evaluation: 11:00 - Subjective Subjective: alert and orientedx3, denies any pain or distress. Objective - Vital Signs/Intake and Output Vital Signs (last 24 hours): Temp Pulse Resp BP Pulse Ox 98.1 F 90 20 148/112 H 96 06/30/18 07:00 06/30/18 07:00 06/30/18 07:00 06/30/18 07:00 06/30/18 07:00 Intake and Output: 06/30/18 06/30/18 06:59 18:59 Intake Total 1240 Balance 1240 - Labs Labs: 06/26/18 14:36 06/26/18 14:36 PT 11.1 SECONDS (9.7-12.2) 06/26/18 14:36 INR 1.0 06/26/18 14:36 APTT 37 SECONDS (21-34) H 06/26/18 14:36 Assessment and Plan - Assessment and Plan (Free Text) Assessment: Patient admitted with transient vision loss, seen and examined. Alert and orientedx3, no sob or chest pains. Discussed with DR Sharath Almonte, plan to discharge home on eliquis for aortic atheroma diagnosed by LEROY, per mechanic driver. Prescription given as directed. Advised to follow up in the office in 1 week.
--- NOTE | 2018-07-05 00:21 | CARD ---
APPROVED REPORT Date of service: 06/29/2018 EXAM: Transesophageal echocardiogram with color flow Doppler. INDICATION CVA/TIA ASD PFO Mitral Valve E/A ratio0.0 TDI E/Lateral E'0.0E/Medial E'0.0 Reason For Test : Rule out cardiac source of emboli. PROCEDURE After obtaining informed consent, patient underwent transesophageal echo in the [facility]. Type of Sedation : Conscious Sedation Sedation was administered by . Sedation was achieved with Versed,fentanyl mg intravenously. Transesophageal probe was inserted and advanced into esophagus without difficulty. Echo enhancement indication: R/O Septal defect. Echo enhancement agent administered: Agitated Saline The LEROY was performed without complications. Throughout the procedure, the blood pressure, pulse oximetry, cardiac rhythm, and rate were monitored. The patient tolerated the procedure without adverse effects. Recovery from conscious sedation was uneventful and vital signs were stable. LEFT VENTRICLE The left ventricle is normal size. There is borderline concentric left ventricular hypertrophy. The left ventricular function is normal. The left ventricular ejection fraction is within the normal range. The Ejection Fraction is 60-65%. There is normal LV segmental wall motion. The left ventricular diastolic function is normal. No left ventricle thrombus noted on this study. There is no ventricular septal defect visualized. There is no left ventricular aneurysm. There is no mass noted in the left ventricle. RIGHT VENTRICLE The right ventricle is normal size. There is normal right ventricular wall thickness. The right ventricular systolic function is normal. ATRIA The left atrium is borderline dilated. The right atrium size is normal. The interatrial septum is intact with no evidence for an atrial septal defect. AORTIC VALVE The aortic valve is normal in structure. No aortic regurgitation is present. There is no aortic valvular stenosis. There is no aortic valvular vegetation. MITRAL VALVE The mitral valve is normal in structure. There is no evidence of mitral valve prolapse. There is no mitral valve stenosis. Mitral regurgitation is trace to mild. TRICUSPID VALVE The tricuspid valve is normal in structure. There is trace tricuspid regurgitation. There is no tricuspid valve prolapse or vegetation. There is no tricuspid valve stenosis. PULMONIC VALVE The pulmonary valve is normal in structure. There is no pulmonic valvular regurgitation. There is no pulmonic valvular stenosis. GREAT VESSELS The aortic root is normal in size. There ismild atherosclerotic plaque in the aortic arch. The IVC is normal in size and collapses >50% with inspiration. PERICARDIAL EFFUSION There is no pericardial effusion. <Conclusion> The left ventricular function is normal. The left ventricular ejection fraction is within the normal range. The Ejection Fraction is 60-65%. There is normal LV segmental wall motion. The left ventricular diastolic function is normal. Mitral regurgitation is trace to mild. The interatrial septum is intact with no evidence for an atrial septal defect. There ismild atherosclerotic plaque in the aortic arch.
== END 2018-06-30 15:08 | disposition home or self-care (01) | DRG 131 ==
LOC: C.ER 13:39 → OBSVTOIN 16:18 → C.9E 16:18 → C.3T 16:39
PROVIDERS: ADMIT Internal Medicine Nephrology; ATTEND Internal Medicine Nephrology
PROC: B246ZZ4 Ultrasonography of Right and Left Heart, Transesophageal (ICD-10-PCS; principal; 2018-06-29)
DX: I70.0 Atherosclerosis of aorta (principal); H53.121 Transient visual loss, right eye; I10 Essential (primary) hypertension; E11.9 Type 2 diabetes mellitus without complications; E78.5 Hyperlipidemia, unspecified; G47.33 Obstructive sleep apnea (adult) (pediatric); K76.0 Fatty (change of) liver, not elsewhere classified; Z23 Encounter for immunization